=== PATIENT | female | born 1955 | race Asian ===

== ENCOUNTER 2017-09-20 11:01 | Outpatient (CLI) | payer OTHER | END 2017-09-20 20:24 | disposition home or self-care (01) | LOC: SRD 11:01 | PROVIDERS: ATTEND Internal Medicine Cardiovascular Disease | DX: M50.223 Other cervical disc displacement at C6-C7 level (principal); M50.221 Other cervical disc displacement at C4-C5 level | CPT/HCPCS: 72050-TC; 72141 ==

== ENCOUNTER 2018-08-29 10:14 | Outpatient (CLI) | payer OTHER | END 2018-08-29 21:21 | disposition home or self-care (01) | LOC: SMI 10:14 | PROVIDERS: ATTEND Neurological Surgery | DX: M47.812 Spondylosis without myelopathy or radiculopathy, cervical region (principal); M50.221 Other cervical disc displacement at C4-C5 level | CPT/HCPCS: 72141 ==

== ENCOUNTER 2020-11-24 08:51 | Outpatient (CLI) | payer OTHER | END 2020-11-24 20:59 | disposition home or self-care (01) | LOC: SMI 08:51 | PROVIDERS: ATTEND Internal Medicine Cardiovascular Disease | DX: M47.812 Spondylosis without myelopathy or radiculopathy, cervical region (principal); G62.9 Polyneuropathy, unspecified; M50.21 Other cervical disc displacement, high cervical region; M48.02 Spinal stenosis, cervical region; M46.02 Spinal enthesopathy, cervical region | CPT/HCPCS: 72141 ==

== ENCOUNTER 2020-12-05 09:40 | Outpatient (CLI) | payer MEDICARE, OTHER ==
[2020-12-05 10:11] LABS: BILIRUBIN,URINE NEGATIVE (NEGATIVE); BLOOD, URINE NEGATIVE (NEGATIVE); COLOR,URINE YELLOW (YELLOW); GLUCOSE,URINE NEGATIVE (NEGATIVE); KETONES,URINE NEGATIVE (NEGATIVE); LEUKOCYTE ESTERASE ,URINE 2+ (NEGATIVE); NITRITE, URINE NEGATIVE (NEGATIVE); PROTEIN URINE NEGATIVE (NEGATIVE); UROBILINOGEN,URINE 0.2 (0.2-1.0)
[2020-12-05 10:14] LABS: BASOPHILS % (AUTO) 0.6 % (0.0-2.0); EOSINOPHILS # (AUTO) 0.1 K/uL (0.0-0.4); EOSINOPHILS % (AUTO) 2.3 % (0.0-4.0); HEMATOCRIT 38.6 % (36-48); HEMOGLOBIN 12.8 g/dL (12.0-16.0); LYMPHOCYTES # (AUTO) 2.3 K/uL (1.0-5.5); LYMPHOCYTES % (AUTO) 39.7 % (20.5-51.5); MEAN CORPUSCULAR HEMOGLOBIN 28 pg (27-31); MEAN CORPUSCULAR HGB CONC 33 % (32-36); MEAN CORPUSCULAR VOLUME 83 fL (79.0-98.0); MONOCYTES # (AUTO) 0.4 K/uL (0.0-1.0); MONOCYTES % (AUTO) 6.9 % (1.7-9.3); NEUTROPHILS # (AUTO) 2.9 K/uL (1.8-7.7); NEUTROPHILS % (AUTO) 50.5 % (40.0-70.0); PLATELET COUNT (AUTO) 231 K/uL (130-430); RED BLOOD CELL COUNT(AUTO) 4.64 MIL/uL (4.2-6.2); RED CELL DISTRIBUTION WIDTH 13.6 % (9.0-15.0); WHITE BLOOD COUNT (AUTO) 5.8 K/uL (4.8-10.8)
[2020-12-05 10:29] LABS: PROTHROMBIN TIME 10.3 SECS (9.5-12.5)
[2020-12-05 10:32] LABS: ALBUMIN 3.6 g/dL (3.4-4.8); CALCIUM 8.8 mg/dL (8.4-11.0); CREATININE 0.72 mg/dL (0.55-1.30); POTASSIUM 4.5 mmol/L (3.5-5.1); TOTAL BILIRUBIN 0.9 mg/dL (0.0-1.0)
[2020-12-05 11:08] LABS: CLARITY/URINE SLIGHTLY HAZY (CLEAR)
[2020-12-05 11:14] LABS: BACTERIA,URINE FEW /HPF (None Seen); MUCUS,URINE 1+ /LPF (None Seen); RBC,URINE 0-3 /HPF (0-3)
== END 2020-12-05 19:14 | disposition home or self-care (01) ==
LOC: SRD 09:40
PROVIDERS: ATTEND Internal Medicine Cardiovascular Disease
DX: Z01.818 Encounter for other preprocedural examination (principal); Z01.812 Encounter for preprocedural laboratory examination; M47.812 Spondylosis without myelopathy or radiculopathy, cervical region; E11.9 Type 2 diabetes mellitus without complications
CPT/HCPCS: 36415; 71046-TC; 80053; 81000; 83036; 85025; 85610-TC; 85730-TC

== ENCOUNTER 2021-02-07 12:20 | Outpatient (CLI) | payer OTHER, MEDICARE | END 2021-02-07 20:36 | disposition home or self-care (01) | LOC: SRD 12:20 | PROVIDERS: ATTEND Physician Assistant | DX: M43.22 Fusion of spine, cervical region (principal); Z98.890 Other specified postprocedural states | CPT/HCPCS: 72040-TC ==

== ENCOUNTER 2021-08-15 11:09 | Outpatient (CLI) | payer OTHER, MEDICARE | END 2021-08-15 20:31 | disposition home or self-care (01) | LOC: SRD 11:09 | PROVIDERS: ATTEND Internal Medicine Cardiovascular Disease | DX: M47.812 Spondylosis without myelopathy or radiculopathy, cervical region (principal); M89.38 Hypertrophy of bone, other site | CPT/HCPCS: 72050-TC ==

== ENCOUNTER 2021-09-12 11:10 | Outpatient (CLI) | payer OTHER, MEDICARE | END 2021-09-12 20:11 | disposition home or self-care (01) | LOC: SRD 11:10 | PROVIDERS: ATTEND Internal Medicine Cardiovascular Disease | DX: M17.0 Bilateral primary osteoarthritis of knee (principal); M76.892 Other specified enthesopathies of left lower limb, excluding foot; M76.891 Other specified enthesopathies of right lower limb, excluding foot; M89.38 Hypertrophy of bone, other site | CPT/HCPCS: 73565 ==

== ENCOUNTER 2022-02-14 08:44 | Outpatient (CLI) | payer OTHER, MEDICARE ==
[2022-02-14 09:59] LABS: BASOPHILS # (AUTO) 0.1 K/uL (0.0-0.2); BASOPHILS % (AUTO) 2.1 % (0.0-2.0); EOSINOPHILS # (AUTO) 0.2 K/uL (0.0-0.4); EOSINOPHILS % (AUTO) 3.4 % (0.0-4.0); HEMATOCRIT 36.9 % (36-48); LYMPHOCYTES # (AUTO) 2.3 K/uL (1.0-5.5); LYMPHOCYTES % (AUTO) 33.8 % (20.5-51.5); MEAN CORPUSCULAR VOLUME 83 fL (79.0-98.0); MONOCYTES # (AUTO) 0.3 K/uL (0.0-1.0); MONOCYTES % (AUTO) 4.9 % (1.7-9.3); NEUTROPHILS # (AUTO) 3.9 K/uL (1.8-7.7); NEUTROPHILS % (AUTO) 55.8 % (40.0-70.0); PLATELET COUNT (AUTO) 232 K/uL (130-430); RED BLOOD CELL COUNT(AUTO) 4.45 MIL/uL (4.2-6.2); RED CELL DISTRIBUTION WIDTH 13.6 % (9.0-15.0); WHITE BLOOD COUNT (AUTO) 6.9 K/uL (4.8-10.8)
[2022-02-14 10:20] LABS: ALBUMIN 3.5 g/dL (3.4-4.8); CALCIUM 8.5 mg/dL (8.4-11.0); CREATININE 0.74 mg/dL (0.55-1.30); POTASSIUM 4.2 mmol/L (3.5-5.1); TOTAL BILIRUBIN 0.8 mg/dL (0.0-1.0)
[2022-02-14 12:28] LABS: ERYTHROCYTE SEDIMENTATION RATE 23 MM/HR (0-20)
== END 2022-02-14 20:45 | disposition home or self-care (01) ==
LOC: SMI 08:44
PROVIDERS: ATTEND Internal Medicine Cardiovascular Disease
DX: M47.22 Other spondylosis with radiculopathy, cervical region (principal); M19.031 Primary osteoarthritis, right wrist; G56.01 Carpal tunnel syndrome, right upper limb; E78.5 Hyperlipidemia, unspecified; E11.9 Type 2 diabetes mellitus without complications; D64.9 Anemia, unspecified
CPT/HCPCS: 36415; 72141; 73221; 80053; 80061; 83036; 85025; 85651-TC